=== PATIENT | male | born 1990 | race African-American/Black ===

== ENCOUNTER 2018-09-19 05:26 | Emergency (ER) | payer MEDICAID ==
[~2018-09-19] VITALS: Ht 172.7 cm; Wt 76.0 kg
[2018-09-19] MEDS ORDERED: VISCOUS LIDOCAINE 2% 15 ML UDC MM ONE (06:45)
[2018-09-19] MEDS ORDERED: ACETAMINOPHEN 325MG TABLET PO ONE (06:45)
[2018-09-19] MEDS ORDERED: IBUPROFEN 600MG TABLET PO ONE (06:45)
[2018-09-19 07:20] VITALS: BP 119/87
== END 2018-09-19 07:35 | disposition home or self-care (01) ==
LOC: ER 05:26
DX: K05.219 Aggressive periodontitis, localized, unspecified severity (principal)
CPT/HCPCS: 10140; 99283

== ENCOUNTER 2019-07-01 06:43 | Emergency (ER) | payer SELFPAY ==
[~2019-07-01] VITALS: Ht 172.7 cm; Wt 75.0 kg
[2019-07-01 06:31] VITALS: BP 118/78
== END 2019-07-01 07:00 | disposition home or self-care (01) ==
LOC: ER 06:43
DX: K12.1 Other forms of stomatitis (principal)
CPT/HCPCS: 99281

== ENCOUNTER 2020-01-05 19:59 | Emergency (ER) | payer SELFPAY ==
[~2020-01-05] VITALS: Ht 172.7 cm; Wt 79.3 kg
[2020-01-05 21:57] VITALS: BP 109/72
== END 2020-01-05 22:01 | disposition home or self-care (01) ==
LOC: ER 19:59
DX: L73.9 Follicular disorder, unspecified (principal); F12.90 Cannabis use, unspecified, uncomplicated; R03.0 Elevated blood-pressure reading, without diagnosis of hypertension
CPT/HCPCS: 99281

== ENCOUNTER 2020-04-09 18:57 | Emergency (ER) | payer SELFPAY ==
[~2020-04-09] VITALS: Ht 172.7 cm; Wt 87.0 kg
[2020-04-09] MEDS ORDERED: HYDROCODONE/ACETAMINOPHEN 5/325MG TABLET PO ONE (20:00)
[2020-04-09] MEDS ORDERED: IBUPROFEN 600MG TABLET PO ONE (20:00)
[2020-04-09 22:08] VITALS: BP 115/78
== END 2020-04-09 22:11 | disposition home or self-care (01) ==
LOC: ER 18:57
DX: S69.92XA Unspecified injury of left wrist, hand and finger(s), initial encounter (principal); F12.10 Cannabis abuse, uncomplicated; Y04.0XXA Assault by unarmed brawl or fight, initial encounter; Y93.89 Activity, other specified; Y92.89 Other specified places as the place of occurrence of the external cause; Y99.8 Other external cause status
CPT/HCPCS: 29125; 73130; 99283

== ENCOUNTER 2020-07-25 03:56 | Emergency (ER) | payer SELFPAY ==
[~2020-07-25] VITALS: Ht 172.7 cm; Wt 86.0 kg
[2020-07-25] MEDS ORDERED: HYDROCODONE/ACETAMINOPHEN 5/325MG TABLET PO ONE (04:45)
[2020-07-25 05:19] VITALS: BP 122/81
== END 2020-07-25 05:22 | disposition home or self-care (01) ==
LOC: ER 03:56
DX: K04.7 Periapical abscess without sinus (principal); K08.89 Other specified disorders of teeth and supporting structures; F12.10 Cannabis abuse, uncomplicated
CPT/HCPCS: 99283

== ENCOUNTER 2020-07-26 03:38 | Emergency (ER) | payer SELFPAY ==
[~2020-07-26] VITALS: Ht 172.7 cm; Wt 87.0 kg
[2020-07-26] MEDS ORDERED: HYDROCODONE/ACETAMINOPHEN 5/325MG TABLET PO ONE (04:30)
[2020-07-26 04:38] VITALS: BP 141/86
== END 2020-07-26 04:40 | disposition home or self-care (01) ==
LOC: ER 03:38
DX: K02.9 Dental caries, unspecified (principal); F12.90 Cannabis use, unspecified, uncomplicated; R03.0 Elevated blood-pressure reading, without diagnosis of hypertension
CPT/HCPCS: 99282

== ENCOUNTER 2020-12-18 12:40 | Emergency (ER) | payer MEDICAID ==
[~2020-12-18] VITALS: Ht 172.7 cm; Wt 87.0 kg
[2020-12-18] MEDS ORDERED: KETOROLAC 60MG/2ML VIAL IM ONE (13:15)
[2020-12-18 13:17] VITALS: BP 104/65
== END 2020-12-18 14:31 | disposition home or self-care (01) ==
LOC: ER 12:40
DX: M79.642 Pain in left hand (principal); M25.532 Pain in left wrist; M79.89 Other specified soft tissue disorders; Z87.828 Personal history of other (healed) physical injury and trauma; F12.90 Cannabis use, unspecified, uncomplicated
CPT/HCPCS: 29125; 73110; 73130; 96372; 99284; J1885; A4565

== ENCOUNTER 2022-04-14 03:13 | Emergency (ER) | payer MEDICAID, OTHER ==
[~2022-04-14] VITALS: Ht 172.7 cm; Wt 95.4 kg
[2022-04-14] MEDS ORDERED: ACETAMINOPHEN 325MG TABLET PO NR (04:30)
[2022-04-14] MEDS ORDERED: TOPUD PO ×3 (05:30→09:38)
[2022-04-14] MEDS ORDERED: IBUP-2028 MT ×3 (05:30→09:38)
[2022-04-14 05:43] VITALS: BP 118/75
== END 2022-04-14 05:45 | disposition home or self-care (01) ==
LOC: ER 03:13
DX: U07.1 COVID-19 (principal); F12.10 Cannabis abuse, uncomplicated; R50.9 Fever, unspecified; R05.9 Cough, unspecified; M79.18 Myalgia, other site
CPT/HCPCS: 71045; 87426; 87804; 99284; C9803